=== PATIENT | male | born 1950 | race Caucasian/White ===

== ENCOUNTER → 2018-01-31 | Outpatient (CLI) | payer MEDICARE, OTHER | END | disposition home or self-care (01) | LOC: KCIC US 09:57 | DX: I65.23 Occlusion and stenosis of bilateral carotid arteries (principal) | CPT/HCPCS: 93880 ==

== ENCOUNTER → 2018-07-04 | Outpatient (CLI) | payer MEDICARE, OTHER ==
--- NOTE | 2018-07-04 15:07 | KCIC ---
3 views of the right hand without comparison for right second digit pain and swelling for one month. FINDINGS: There is no fracture, dislocation, or acute osseous abnormality identified. Joints and soft tissues are grossly unremarkable. No radiopaque foreign bodies are seen. IMPRESSION: 1. No acute osseous abnormality of the right hand. Electronically signed by: Darrick Richmond MD (07/04/2018 3:04 PM) [id number]
== END | disposition home or self-care (01) ==
LOC: KCIC 11:55
PROVIDERS: ATTEND Family Medicine
DX: M79.641 Pain in right hand (principal); M79.89 Other specified soft tissue disorders
CPT/HCPCS: 73130

== ENCOUNTER → 2019-07-04 | Outpatient (CLI) | payer MEDICARE, OTHER ==
--- NOTE | 2019-07-04 12:53 | KCIC ---
EXAM: CAROTID DOPPLER SONOGRAM. HISTORY: Hypertension, carotid artery disease. TECHNIQUE: Hays scale and color Doppler sonographic evaluation of the neck with spectral waveform analysis was performed and static images are submitted for review. FINDINGS: RIGHT: The peak systolic velocity within the common carotid artery is 64 cm/sec. The peak systolic velocity within the internal carotid artery is 63 cm/sec and the end diastolic velocity within the internal carotid artery is 19 cm/sec. The ICA/CCA ratio is 0.7. Grayscale images demonstrate no grayscale stenosis. LEFT: The peak systolic velocity within the common carotid artery is 121 cm/sec. The peak systolic velocity within the internal carotid artery is 109 cm/sec and the end diastolic velocity within the internal carotid artery is 36 cm/sec. The ICA/CCA ratio is 0.9. Grayscale images demonstrate no grayscale stenosis. There is antegrade flow within both vertebral arteries. IMPRESSION: 1. No evidence of hemodynamically significant stenosis. PQRS Compliance Statement - Stenosis calculations for CT, MR and conventional angiography are based upon measurement of the distal ICA diameter in accordance with the NASCET methodology. Stenosis calculations for carotid ultrasound studies are derived from validated velocity criteria which are known to correlate with the NASCET methodology. Electronically signed by: Silvestre Nolasco MD (07/04/2019 12:50 PM) [id number]
--- NOTE | 2019-07-04 14:54 | KCIC ---
EXAM: Left hip and pelvis, 3 views. HISTORY: Pain. COMPARISON: None. FINDINGS: A frontal view the pelvis and frontal and frog-leg views left hip are obtained. There is no fracture, dislocation or subluxation. There is mild marginal acetabular spurring. There is degenerative endplate remodeling with disc space narrowing and facet arthropathy at the lower lumbar levels. IMPRESSION: 1. No acute osseous finding. 2. Minimal left hip osteoarthritis. 3. Degenerative change at the lower lumbar levels. Electronically signed by: Elena Rhodes MD (07/04/2019 2:51 PM) [place] [id number]
== END | disposition home or self-care (01) ==
LOC: KCIC US 10:53
PROVIDERS: ATTEND Family Medicine
DX: M16.12 Unilateral primary osteoarthritis, left hip (principal); I77.9 Disorder of arteries and arterioles, unspecified; I10 Essential (primary) hypertension; I25.10 Atherosclerotic heart disease of native coronary artery without angina pectoris; M51.36 Other intervertebral disc degeneration, lumbar region
CPT/HCPCS: 73502; 93880